=== PATIENT | male | born 1955 | race Native Hawaiian/Other Pacific Islander ===

== ENCOUNTER → 2022-01-19 | Outpatient (CLI) | payer MEDICARE, OTHER ==
[2022-01-19 18:17] LABS: HCT 42.7 % (39.6-50.0); HGB 13.7 g/dL (13.0-17.0); MCH 30.2 pg (27.0-32.0); MCHC 32.1 g/dL (32.0-37.0); MCV 94.1 fL (80.0-97.0); NRBC Per 100 WBC 0 /100 WBCS (0.0-0.0); Platelet Count 264 X 10*3/uL (140-440); RBC 4.54 X 10*6/uL (4.40-5.60); RDW 12.5 % (11.5-14.5); WBC 7.81 X 10*3/uL (4.50-10.00)
[2022-01-19 18:34] LABS: African American GFR (CKD) 81.2 (60.0-200.0); Anion Gap 15.4 mmol/L (10.00-18.00); Carbon Dioxide 21.6 mmol/L (20.0-27.5); Non-African American GFR(CKD) 70.1 (60.0-200.0); Potassium 4.5 mmol/L (3.5-5.5)
== END | disposition home or self-care (01) ==
LOC: LABPAT 12:49
PROVIDERS: ATTEND Internal Medicine Cardiovascular Disease
DX: Z01.812 Encounter for preprocedural laboratory examination (principal); R07.2 Precordial pain
CPT/HCPCS: 80051; 82565; 84520; 85027

== ENCOUNTER → 2022-03-07 | Outpatient (CLI) | payer MEDICARE, OTHER ==
--- NOTE | 2022-03-07 16:52 | XR ---
EXAMINATION TYPE: XR Hip Complete LT DATE OF EXAM: 03/07/2022 CLINICAL HISTORY: pain TECHNIQUE: AP and frogleg views of the left hip are obtained. COMPARISON: None. FINDINGS: There is no acute fracture/dislocation evident. The joint space appears within normal li mits. The overlying soft tissue appears unremarkable. IMPRESSION: 1. There is no acute fracture or dislocation.ICD 10 NO FRACTURE, INITIAL EVALUATION
== END | disposition home or self-care (01) ==
LOC: RADXRMAIN 16:28
PROVIDERS: ATTEND Family Medicine
DX: M25.552 Pain in left hip (principal)
CPT/HCPCS: 73502

== ENCOUNTER → 2022-05-15 | Outpatient (CLI) | payer MEDICARE, OTHER ==
[2022-05-15 15:14] LABS: Basophils # (A) 0.03 X 10*3/uL (0.00-0.10); Basophils % (A) 0.6 %; Eosinophils # (A) 0.05 X 10*3/uL (0.04-0.35); HGB 13.7 g/dL (13.0-17.0); Immature Grans, Automated 0.2 %; Lymphocytes # (A) 1.43 X 10*3/uL (0.90-5.00); Lymphocytes % (A) 27.5 %; MCH 29.1 pg (27.0-32.0); MCHC 31.9 g/dL (32.0-37.0); MCV 91.5 fL (80.0-97.0); Monocytes # (A) 0.37 X 10*3/uL (0.20-1.00); Monocytes % (A) 7.1 %; NRBC Per 100 WBC 0 /100 WBCS (0.0-0.0); Neutrophils # (A) 3.31 X 10*3/uL (1.80-7.70); Neutrophils % (A) 63.6 %; Platelet Count 266 X 10*3/uL (140-440); RDW 11.9 % (11.5-14.5)
[2022-05-15 15:33] LABS: African American GFR (CKD) 72.6 (60.0-200.0); Albumin 4.6 g/dL (3.8-4.9); Albumin/Globulin Ratio 1.92 (1.60-3.17); Anion Gap 13.6 mmol/L (10.00-18.00); BUN/Creat Ratio 13.17 Ratio (12.00-20.00); Blood Urea Nitrogen 15.8 mg/dL (9.0-27.0); Calcium 9.4 mg/dL (8.7-10.3); Carbon Dioxide 22.4 mmol/L (20.0-27.5); Globulin 2.4 g/dL (1.6-3.3); Non-African American GFR(CKD) 62.6 (60.0-200.0); Potassium 4.6 mmol/L (3.5-5.5); Total Bilirubin 0.3 mg/dL (0.30-1.20)
[2022-05-15 15:43] LABS: Appearance,Urine Clear (Clear); Bilirubin,Urine Negative (Negative); Blood,Urine Negative (Negative); Color,Urine Yellow (Yellow); Ketones,Urine Negative (Negative); Nitrite,Urine Negative (Negative); PH, Urine 5.5 (5.0-8.0); Specific Gravity,Urine 1.014 (1.001-1.030); Urobilinogen,Urine 0.2 (0.2,1.0)
== END | disposition home or self-care (01) ==
LOC: LABPAT 10:22
PROVIDERS: ATTEND Urology
DX: Z01.812 Encounter for preprocedural laboratory examination (principal); N53.9 Unspecified male sexual dysfunction
CPT/HCPCS: 80053; 81003; 85025; 87086

== ENCOUNTER 2022-05-23 08:43 | Inpatient (IN) | payer MEDICARE, OTHER ==
[2022-05-22 11:17] VITALS: BMI 30.7
--- NOTE | 2022-05-22 19:31 | P.GSHP ---
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 He has failed pde5 inhibitors He is getting no erection. He is intolerant of vasoactive injections He has failed a vacuum pump He comes for an IPP. The risks and complications including infection, pain , erosion, lack of satisfaction, pain among others have been eplained understood and accepted. - Constitutional Constitutional: Denies chills, Denies fever - EENT Eyes: denies blurred vision, denies pain Ears, nose, mouth and throat: Denies headache, Denies sore throat - Cardiovascular Cardiovascular: Denies chest pain, Denies shortness of breath - Respiratory Respiratory: Denies cough, Denies 7 - Gastrointestinal Gastrointestinal: Denies abdominal pain, Denies diarrhea, Denies nausea, Denies vomiting - Genitourinary (Female) Genitourinary: Denies dysuria, Denies hematuria - Genitourinary (Male) Genitourinary: Denies dysuria, Denies hematuria - Musculoskeletal Musculoskeletal: Denies myalgias - Integumentary Integumentary: Denies pruritus, Denies rash - Neurological Neurological: Denies numbness, Denies weakness - Psychiatric Psychiatric: Denies anxiety, Denies depression - Endocrine Endocrine: Denies fatigue, Denies weight change Past Medical History Past Medical History: Chest Pain / Angina, Diabetes Mellitus, GERD/Reflux, Hyperlipidemia, Hypertension, Osteoarthritis (OA), Prostate Disorder Additional Past Medical History / Comment(s): occ SOB, irregular bowel movements, frequent night urination History of Any Multi-Drug Resistant Organisms: None Reported Past Surgical History: Cholecystectomy, Heart Catheterization With Stent Additional Past Surgical History / Comment(s): two cardiac stents Past Anesthesia/Blood Transfusion Reactions: No Reported Reaction Additional Past Anesthesia/Blood Transfusion Reaction / Comment(s): unk family hx Date of Last Stent Placement:: 2007 Smoking Status: Former smoker - Past Family History Mother History Unknown: Yes Family Medical History: Unable to Obtain Father History Unknown: Yes Medications and Allergies Home Medications Medication Instructions Recorded Confirmed Type ARIPiprazole [Abilify] 5 mg PO DAILY 01/22/22 01/30/22 History Aspirin [Adult Low Dose Aspirin EC] 81 mg PO DAILY 01/22/22 01/30/22 History Baclofen 10 mg PO TID 01/22/22 01/30/22 History Finasteride [Proscar] 5 mg PO DAILY 01/22/22 01/30/22 History HYDROcodone/APAP 7.5-325MG [[place] 1 tab PO Q6HR PRN 01/22/22 01/30/22 History 7.5-325] Insulin Glargine,Hum.rec.anlog 20 unit SQ DAILY 01/22/22 01/30/22 History [Lantus Solostar Pen] Losartan Potassium 100 mg PO DAILY 01/22/22 01/30/22 History Tamsulosin [Flomax] 0.8 mg PO DAILY 01/22/22 01/30/22 History metFORMIN HCL [Glucophage] 1,000 mg PO BID 01/22/22 01/30/22 History Atorvastatin [Lipitor] 40 mg PO DAILY 01/24/22 01/30/22 History Allergies Allergy/AdvReac Type Severity Reaction Status Date / Time No Known Allergies Allergy Verified 05/22/22 10:23 Surgical - Exam - General well developed, well nourished, no distress Assessment and Plan Assessment: Impression: 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
[~2022-05-23 08:43] MED LIST: DEXAMETHASONE SOD PHOSPHATE 4 MG/ML 1 ML VIAL IV ONE; LACTATED RINGERS 1,000 ML IV SCH; ONDANSETRON 4 MG/2 ML VIAL IVP ONE
[2022-05-23] MEDS ORDERED: MIDAZOLAM 2 MG/2 ML VIAL ONE (10:14)
[2022-05-23] MEDS ORDERED: PHENYLEPHRINE-0.9% NACL SYG 1,000 MCG/10 ML SYRINGE ONE (10:14)
[2022-05-23] MEDS ORDERED: PROPOFOL 10 MG/ML 20 ML VIAL IV ONE (10:14)
[2022-05-23] MEDS ORDERED: fentaNYL (PF) 50 MCG/ML 2 ML AMP ONE (10:14)
[2022-05-23] MEDS ORDERED: LIDOCAINE 2% INJ 20 MG/ML (2 ML VIAL) ONE (10:14)
[2022-05-23] MEDS ORDERED: SUCCINYLCHOLINE CHLORIDE 100 MG/5 ML SYR IV ONE (10:14)
[2022-05-23] MEDS ORDERED: LIDOCAINE 1% (10MG/ML) FOR IV START INTRADERMA ONE (10:17)
[2022-05-23 10:25] LABS: Glucose,Whole Blood 138 mg/dL (70-110)
--- NOTE | 2022-05-23 12:00 | P.OP ---
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 He has diabetes and significant peripheral vascular disease. He is impotent in conservative measures of failed he comes for a penile implant Description of Procedure: The operative suite and given general anesthesia. Prepped and draped sterilely. A midline infrapubic incision is made. I exposed the distal rectus fascia. As the corpora bilaterally. Stay stitches with 3-0 PDS are placed in each corpora. Bilateral corporotomies were made. The corpora are dilated proximally and distally with Metzenbaum scissors and then Hegar dilators 9-13. The corpora measured 9 cm proximal and 9-91\2 half centimeters distally bilaterally. I then make an incision in the rectus fascia. I developed the prevesical space. The reservoir placed in this with the tubing coming out the external ring. It is filled with 65 mL of saline without tension. The rectus rashes closed with 0 PDS. I then used the Reynaldo introducer and the Magnus needle to pass the implant distally through the corpora. Both corpora seat nicely. I do not require rear- tip extenders. Corporotomies are then closed with 3-[address] then [address] the pump in the scrotal space on the right side. I connected to the reservoir with straight connects. I then inflate and deflate the implant without difficulty. There is no ST deformity's. I passed a Thao catheter in the bladder there is no difficulty passing the catheter nor is or bleeding. The wound is closed with 3-0 chromic and then a 4-0 Vicryl. Blood loss is about 50 mL. The patient tolerated the procedure well and will be discharged home upon recovery.
[2022-05-23] MEDS: HYDROmorphone 0.5 MG/0.5 ML SYRINGE IVP PRN ×4 (12:10→12:50)
[2022-05-23 12:28] VITALS: TEMP 97
[2022-05-23 13:59] VITALS: BP 150/85; PULSE 78; RESP 16
== END 2022-05-23 15:00 | disposition home or self-care (01) | DRG 989 ==
LOC: 2ORMAIN 08:43
PROVIDERS: ADMIT Urology; ATTEND Urology
PROC: 0VUS0JZ Supplement Penis with Synthetic Substitute, Open Approach (ICD-10-PCS; principal; 2022-05-23 10:15)
DX: E13.51 Other specified diabetes mellitus with diabetic peripheral angiopathy without gangrene (principal); E78.00 Pure hypercholesterolemia, unspecified; Z79.4 Long term (current) use of insulin; N52.1 Erectile dysfunction due to diseases classified elsewhere; E78.2 Mixed hyperlipidemia; I10 Essential (primary) hypertension; I25.10 Atherosclerotic heart disease of native coronary artery without angina pectoris; K21.9 Gastro-esophageal reflux disease without esophagitis; N42.9 Disorder of prostate, unspecified; M19.90 Unspecified osteoarthritis, unspecified site; Z79.82 Long term (current) use of aspirin; Z79.84 Long term (current) use of oral hypoglycemic drugs; Z79.02 Long term (current) use of antithrombotics/antiplatelets; Z79.899 Other long term (current) drug therapy; Z95.5 Presence of coronary angioplasty implant and graft; Z87.891 Personal history of nicotine dependence